=== PATIENT | female | born 1975 | race Caucasian/White ===

== ENCOUNTER 2017-07-05 12:08 | Inpatient (IN) | payer MEDICAID, OTHER ==
[2017-07-05] MEDS: IBUPROFEN 200 MG TAB PO (16:08)
[2017-07-05 16:10] LABS: ABNORMAL IP MESSAGE 1; HEMATOCRIT 18.2 % (37.0-47.0); MEAN CORPUSCULAR HEMOGLOBIN 16.7 pg (29.0-33.0); MEAN CORPUSCULAR HGB CONC 27.5 g/dl (32.0-37.0); MEAN CORPUSCULAR VOLUME 60.9 fl (82.0-101.0); MEAN PLATELET VOLUME 9.8 fl (7.4-10.4); NUCLEATED RED BLOOD CELLS% 0.1 /100WBC (0.0-0.0); PLATELET COUNT 440 10^3/UL (140-415); RED BLOOD COUNT 2.99 10^6/ul (4.20-5.40); RED CELL DISTRIBUTION WIDTH 20.1 % (11.5-14.5)
[2017-07-05 16:16] LABS: ADD UMIC YES; UR ASCORBIC ACID NEGATIVE (NEGATIVE); UR BACTERIA FEW /HPF (NONE SEEN); UR BILIRUBIN (Dip) NEGATIVE (NEGATIVE); UR BLOOD (Dip) 1+ mg/dL (NEGATIVE); UR CLARITY CLEAR (CLEAR); UR COLOR YELLOW (YELLOW); UR GLUCOSE (Dip) NEGATIVE (NEGATIVE); UR KETONES (Dip) NEGATIVE (NEGATIVE); UR LEUKOCYTE ESTERASE (Dip) NEGATIVE Leu/ul (NEGATIVE); UR NITRITE (Dip) NEGATIVE (NEGATIVE); UR RBC 0 /HPF (0-5); UR SPECIFIC GRAVITY (Dip) 1.018 (1.003-1.030); UR TOTAL PROTEIN (Dip) NEGATIVE (NEGATIVE); UR UROBILINOGEN (Dip) NEGATIVE (NEGATIVE); UR WBC 1 /HPF (0-5)
[2017-07-05 16:22] LABS: POSITIVE DIFF @See below
[2017-07-05 16:23] LABS: ADD MAN DIFF? YES; PATH REVIEW? YES
[2017-07-05 17:01] LABS: ANISOCYTOSIS 3+ (0-0); BAND NEUTROPHILS #M 1.2 10^3/ul (0.0-0.6); BAND NEUTROPHILS % (M) 6 % (0-4); ERYTHROBLAST% (NRBC) (M) 1 % (0-0); GIANT THROMBO% (M) 2 % (0-0); HYPOCHROMASIA 3+ (0-0); LYMPHOCYTES #M 0.4 10^3/ul (0.8-2.9); LYMPHOCYTES % (M) 2 % (15-51); MICROCYTOSIS 3+ (0-0); PLATELET ESTIMATE INCREASED; POIKILOCYTOSIS 2+ (0-0); POLYCHROMASIA 2+ (0-0); SEG NEUT #M 19.6 10^3/ul (1.7-7.5); SEGMENTED NEUTROPHILS (M) % 92 % (39-77); SMUDGE%M 1 % (0-0)
[2017-07-05] MEDS: SOD CHLORIDE 0.9% 1,000 ML IV ×3 (17:07→23:43)
[2017-07-05] MEDS: morphine 4 MG/ML VIAL IV (17:09)
[2017-07-05 17:20] LABS: PARTIAL THROMBOPLASTIN TIME 31.9 Sec (25.0-35.0); PROTIME 14.4 Sec (11.9-14.9); PT RATIO 1.1
[2017-07-05 17:54] LABS: ALANINE AMINOTRANSFERASE 30 IU/L (13-69); ALBUMIN 4.1 g/dl (3.3-4.9); ALBUMIN/GLOBULIN RATIO 1.64; ALKALINE PHOSPHATASE 46 IU/L (42-121); ANION GAP 19 (8-16); ASPARTATE AMINO TRANSFERASE 29 IU/L (15-46); BILIRUBIN,INDIRECT 0.3 mg/dl (0-1.1); BILIRUBIN,TOTAL 0.3 mg/dl (0.2-1.3); BLOOD UREA NITROGEN 11 mg/dl (7-20); CARBON DIOXIDE 20 mmol/L (21-31); CHLORIDE 106 mmol/L (97-110); CREATININE 0.62 mg/dl (0.44-1.00); GLUCOSE 103 mg/dl (70-220); LIPASE 90 U/L (23-300); POTASSIUM 3.6 mmol/L (3.5-5.1); SODIUM 141 mmol/L (135-144); TOTAL PROTEIN 6.6 g/dl (6.1-8.1)
[2017-07-05] MEDS: PIPER-TAZO 3.375 GM IV (PMX) 50 ML IV (18:24)
[2017-07-05 19:05] LABS: LACTIC ACID 1.4 mmol/L (0.5-2.0)
[2017-07-05] MEDS: IOHEXOL 300MG/ML 150 ML BTL (19:47)
[2017-07-05] MEDS: SOD CHLORIDE 0.9% 100 ML (19:47)
[2017-07-05 21:01] LABS: IMMEDIATE SPIN CROSSMATCH 1 4
[2017-07-05] MEDS: HYDROmorphONE 1 MG/ML SYG IV ×2 (21:21→23:09)
[2017-07-05 21:35] LABS: LACTIC ACID 1.1 mmol/L (0.5-2.0)
[2017-07-05] MEDS ORDERED: BISACODYL (EC) 5 MG TAB PO (22:00)
[2017-07-05] MEDS ORDERED: morphine 2 MG INJ IV (22:00)
[2017-07-05] MEDS ORDERED: VANCOMYCIN IV PER PHARMACY XX (22:00)
[2017-07-05] MEDS ORDERED: NACL 0.9% 3 ML SYG IV (22:00)
[2017-07-05] MEDS ORDERED: DOCUSATE SODIUM 100 MG CAP PO (22:00)
[2017-07-05 22:10] LABS: IRON < 10 ug/dl (35-150)
[2017-07-05 22:16] LABS: TOTAL IRON BINDING CAPACITY 385 ug/dl (241-421)
[2017-07-05 23:00] LABS: FERRITIN 7.4 ng/ml (6.2-137.0)
[2017-07-05] MEDS: ONDANSETRON 4 MG INJ IV (23:09)
[2017-07-06] MEDS: SOD CHLORIDE 0.9% 500 ML IV (00:02)
[2017-07-06] MEDS ORDERED: FUROSEMIDE 20 MG INJ IV (01:00)
[2017-07-06] MEDS: VANCOMYCIN 1 GM in 250 ML IVPB (01:25)
[2017-07-06] MEDS: ACETAMINOPHEN 325 MG TAB PO (01:32)
[2017-07-06] MEDS: PIPER-TAZO 3.375 GM IV (PMX) 50 ML IVPB ×4 (05:26→17:31)
[2017-07-06] MEDS: SOD CHLORIDE 0.9% 1,000 ML IV ×3 (05:35→21:44)
[2017-07-06 05:51] LABS: ADD MAN DIFF? NO
[2017-07-06 06:03] LABS: WHITE BLOOD COUNT 18.1 10^3/ul (4.8-10.8)
[2017-07-06 06:03] LABS: ABNORMAL IP MESSAGE 1; BASOPHIL # 0.1 10^3/ul (0.0-0.1); BASOPHILS % 0.6 % (0.0-2.0); EOSINOPHILS % 0.1 % (0.0-7.0); HEMATOCRIT 23.4 % (37.0-47.0); HEMOGLOBIN 7.2 g/dl (12.0-16.0); LYMPHOCYTES # 1.3 10^3/ul (0.8-2.9); LYMPHOCYTES % 7.2 % (15.0-51.0); MEAN CORPUSCULAR HEMOGLOBIN 21.2 pg (29.0-33.0); MEAN CORPUSCULAR HGB CONC 30.8 g/dl (32.0-37.0); MEAN CORPUSCULAR VOLUME 68.8 fl (82.0-101.0); MEAN PLATELET VOLUME 10.1 fl (7.4-10.4); MONOCYTE # 0.5 10^3/ul (0.3-0.9); MONOCYTES % 2.8 % (0.0-11.0); NEUTROPHIL # 16.1 10^3/ul (1.6-7.5); NEUTROPHILS % 88.7 % (39.0-77.0); NUCLEATED RED BLOOD CELLS # 0.1 10^3/ul (0.0-0.0); NUCLEATED RED BLOOD CELLS% 0.3 /100WBC (0.0-0.0); PLATELET COUNT 332 10^3/UL (140-415)
[2017-07-06 06:07] LABS: LACTIC ACID 1.5 mmol/L (0.5-2.0)
[2017-07-06 06:58] LABS: POSITIVE DIFF @See below
[2017-07-06 07:26] LABS: ALANINE AMINOTRANSFERASE 67 IU/L (13-69); ALBUMIN 3.2 g/dl (3.3-4.9); ALBUMIN/GLOBULIN RATIO 1.23; ALKALINE PHOSPHATASE 54 IU/L (42-121); ANION GAP 12 (8-16); ASPARTATE AMINO TRANSFERASE 98 IU/L (15-46); BILIRUBIN,INDIRECT 0.4 mg/dl (0-1.1); BILIRUBIN,TOTAL 0.4 mg/dl (0.2-1.3); BLOOD UREA NITROGEN 7 mg/dl (7-20); CALCIUM 7.9 mg/dl (8.4-10.2); CARBON DIOXIDE 19 mmol/L (21-31); CHLORIDE 112 mmol/L (97-110); CHOL/HDL RATIO 2.3 RATIO; CHOLESTEROL 90 mg/dl (100-200); CREATININE 0.65 mg/dl (0.44-1.00); GLUCOSE 140 mg/dl (70-220); HDL CHOLESTEROL 39 mg/dl (34-88); LDL CHOLESTEROL,CALCULATED 39 mg/dl; MAGNESIUM 1.9 mg/dl (1.7-2.5); POTASSIUM 3.4 mmol/L (3.5-5.1); SODIUM 140 mmol/L (135-144); TOTAL PROTEIN 5.8 g/dl (6.1-8.1); TRIGLYCERIDES 60 mg/dl (0-149)
[2017-07-06 08:35] LABS: THYROID STIMULATING HORMONE 0.876 MIU/L (0.465-4.680)
[2017-07-06 09:04] LABS: LACTIC ACID 0.9 mmol/L (0.5-2.0)
[2017-07-06] MEDS: POTASSIUM CHLORIDE (SR) 20 MEQ TAB PO ×2 (09:45→18:58)
[2017-07-06] MEDS: AZITHROMYCIN 250 MG TAB PO ×2 (10:00→20:40)
[2017-07-06 10:47] LABS: HEMOGLOBIN A1C 5.7 % (0-5.9)
[2017-07-06 12:39] LABS: HEPATITIS B SURFACE ANTIGEN NEGATIVE (NEGATIVE)
[2017-07-06 12:56] LABS: HEPATITIS C VIRAL ANTIBODY NEGATIVE (NEGATIVE)
[2017-07-06] MEDS: VANCOMYCIN 750 MG in DEXTROSE 5% 150 ML IVPB (15:30)
[2017-07-06] MEDS: BARIUM SULF 2% 450 ML BTL (BERRY SMOOTHIE) PO (15:30)
[2017-07-06 17:00] LABS: ADD MAN DIFF? NO
[2017-07-06] MEDS: SOD FERRIC GLUC COMPLX 125 MG in SOD CHLORIDE 0.9% 100 ML IVPB (17:00)
[2017-07-06 17:02] LABS: WHITE BLOOD COUNT 16.2 10^3/ul (4.8-10.8)
[2017-07-06 17:02] LABS: ABNORMAL IP MESSAGE 1; BASOPHIL # 0.1 10^3/ul (0.0-0.1); BASOPHILS % 0.7 % (0.0-2.0); EOSINOPHILS # 0.1 10^3/ul (0.0-0.5); EOSINOPHILS % 0.3 % (0.0-7.0); HEMOGLOBIN 10.9 g/dl (12.0-16.0); LYMPHOCYTES # 1.3 10^3/ul (0.8-2.9); LYMPHOCYTES % 8.1 % (15.0-51.0); MEAN CORPUSCULAR HEMOGLOBIN 22.9 pg (29.0-33.0); MEAN CORPUSCULAR HGB CONC 30.6 g/dl (32.0-37.0); MEAN CORPUSCULAR VOLUME 74.6 fl (82.0-101.0); MEAN PLATELET VOLUME 10.5 fl (7.4-10.4); MONOCYTE # 0.5 10^3/ul (0.3-0.9); MONOCYTES % 3.2 % (0.0-11.0); NEUTROPHIL # 14.1 10^3/ul (1.6-7.5); NEUTROPHILS % 87.2 % (39.0-77.0); NUCLEATED RED BLOOD CELLS # 0.1 10^3/ul (0.0-0.0); NUCLEATED RED BLOOD CELLS% 0.5 /100WBC (0.0-0.0); PLATELET COUNT 354 10^3/UL (140-415)
[2017-07-06 17:05] LABS: HEMATOCRIT 35.6 % (37.0-47.0); POSITIVE DIFF @See below; RED BLOOD COUNT 4.77 10^6/ul (4.20-5.40)
[2017-07-06] MEDS ORDERED: BARIUM SULF 2% 450 ML BTL (BERRY SMOOTHIE) PO (18:00)
[2017-07-06] MEDS: IOHEXOL 300MG/ML 150 ML BTL (18:48)
[2017-07-06] MEDS: SOD CHLORIDE 0.9% 100 ML (18:48)
[2017-07-06] MEDS: MEDROXYPROGESTERONE 10 MG TAB PO (18:58)
[2017-07-06 19:54] LABS: RAPID PLASMA REAGIN NONREACTIVE (NR)
[2017-07-07 00:45] LABS: ADD MAN DIFF? NO
[2017-07-07 00:49] LABS: WHITE BLOOD COUNT 15.4 10^3/ul (4.8-10.8)
[2017-07-07 00:49] LABS: ABNORMAL IP MESSAGE 1; BASOPHIL # 0.1 10^3/ul (0.0-0.1); BASOPHILS % 0.7 % (0.0-2.0); EOSINOPHILS # 0.1 10^3/ul (0.0-0.5); EOSINOPHILS % 0.5 % (0.0-7.0); HEMATOCRIT 33.1 % (37.0-47.0); HEMOGLOBIN 10.3 g/dl (12.0-16.0); LYMPHOCYTES # 1.5 10^3/ul (0.8-2.9); LYMPHOCYTES % 9.9 % (15.0-51.0); MEAN CORPUSCULAR HEMOGLOBIN 22.6 pg (29.0-33.0); MEAN CORPUSCULAR HGB CONC 31.1 g/dl (32.0-37.0); MEAN CORPUSCULAR VOLUME 72.6 fl (82.0-101.0); MEAN PLATELET VOLUME 10.2 fl (7.4-10.4); MONOCYTE # 0.7 10^3/ul (0.3-0.9); MONOCYTES % 4.2 % (0.0-11.0); NEUTROPHIL # 12.9 10^3/ul (1.6-7.5); NEUTROPHILS % 84.3 % (39.0-77.0); NUCLEATED RED BLOOD CELLS # 0.1 10^3/ul (0.0-0.0); NUCLEATED RED BLOOD CELLS% 0.7 /100WBC (0.0-0.0); PLATELET COUNT 339 10^3/UL (140-415); RED BLOOD COUNT 4.56 10^6/ul (4.20-5.40)
[2017-07-07] MEDS: PIPER-TAZO 3.375 GM IV (PMX) 50 ML IVPB ×4 (00:49→18:12)
[2017-07-07 01:01] LABS: POSITIVE DIFF @See below
[2017-07-07] MEDS: VANCOMYCIN 750 MG in DEXTROSE 5% 150 ML IVPB ×2 (02:22→15:25)
[2017-07-07] MEDS: MEDROXYPROGESTERONE 10 MG TAB PO (08:29)
[2017-07-07] MEDS: SOD FERRIC GLUC COMPLX 125 MG in SOD CHLORIDE 0.9% 100 ML IVPB (11:31)
[2017-07-07] MEDS: SOD CHLORIDE 0.9% 1,000 ML IV ×2 (11:32→22:07)
[2017-07-07] MEDS: POTASSIUM CHLORIDE 50 ML IVPB ×2 (18:12→18:13)
[2017-07-07] MEDS ORDERED: POTASSIUM CHLORIDE (SR) 20 MEQ TAB PO (23:44)
[2017-07-07] MEDS: POTASSIUM CHLORIDE (SR) 20 MEQ TAB PO (23:56)
[2017-07-08] MEDS: PIPER-TAZO 3.375 GM IV (PMX) 50 ML IVPB ×4 (00:18→18:30)
[2017-07-08] MEDS: VANCOMYCIN 750 MG in DEXTROSE 5% 150 ML IVPB ×3 (03:00→20:36)
[2017-07-08 03:34] LABS: VANCOMYCIN,TROUGH 5.2 ug/ml (10.0-20.0)
[2017-07-08 08:40] LABS: LIPASE 140 U/L (23-300)
[2017-07-08 08:40] LABS: AMYLASE 39 U/L (11-123)
[2017-07-08 08:56] LABS: ALANINE AMINOTRANSFERASE 60 IU/L (13-69); ALBUMIN 3.4 g/dl (3.3-4.9); ALKALINE PHOSPHATASE 79 IU/L (42-121); ANION GAP 18 (8-16); ASPARTATE AMINO TRANSFERASE 44 IU/L (15-46); BILIRUBIN,INDIRECT 0.2 mg/dl (0-1.1); BILIRUBIN,TOTAL 0.2 mg/dl (0.2-1.3); BLOOD UREA NITROGEN 6 mg/dl (7-20); CALCIUM 8.7 mg/dl (8.4-10.2); CARBON DIOXIDE 20 mmol/L (21-31); CHLORIDE 111 mmol/L (97-110); CREATININE 0.57 mg/dl (0.44-1.00); GLUCOSE 82 mg/dl (70-220); POTASSIUM 3.7 mmol/L (3.5-5.1); SODIUM 145 mmol/L (135-144); TOTAL PROTEIN 6.8 g/dl (6.1-8.1)
[2017-07-08] MEDS: MEDROXYPROGESTERONE 10 MG TAB PO (09:00)
[2017-07-08] MEDS ORDERED: VANCOMYCIN 1 GM in SODIUM CHLORIDE 0.45 % 250 ML IVPB (09:00)
[2017-07-08] MEDS: SOD FERRIC GLUC COMPLX 125 MG in SOD CHLORIDE 0.9% 100 ML IVPB (11:00)
[2017-07-08] MEDS: SOD CHLORIDE 0.9% 1,000 ML IV (12:45)
[2017-07-08] MEDS ORDERED: LIDOCAINE 2% (SDV) 5 ML INJ (14:56)
[2017-07-08] MEDS ORDERED: GLYCOPYRROLATE 0.4 MG INJ (14:56)
[2017-07-08] MEDS ORDERED: MIDAZOLAM 1 MG/ML 2 ML INJ (14:56)
[2017-07-08] MEDS ORDERED: PROPOFOL 20 ML (14:56)
[2017-07-08] MEDS ORDERED: FENTAnyl 50 MCG/ML VIAL (14:57)
[2017-07-08] MEDS ORDERED: FAMOTIDINE 20 MG INJ (15:01)
[2017-07-08] MEDS ORDERED: ONDANSETRON 4 MG INJ (15:01)
[2017-07-08] MEDS ORDERED: DEXAMETHASONE 4 MG/ML 1 ML INJ (15:01)
[2017-07-08] MEDS ORDERED: METOCLOPRAMIDE 10 MG INJ IV (15:30)
[2017-07-08] MEDS ORDERED: FENTAnyl 50 MCG/ML VIAL IV ×3 (15:30)
[2017-07-08] MEDS ORDERED: LABETALOL HCL 20MG INJ IV (15:30)
[2017-07-08] MEDS ORDERED: hydrALAzine 20 MG INJ IV (15:30)
[2017-07-08] MEDS ORDERED: OXYCODONE/ACETAMINOPHEN (5/325) TAB PO ×2 (15:30)
[2017-07-08] MEDS: ONDANSETRON 4 MG INJ IV (16:18)
[2017-07-08] MEDS: ACETAMINOPHEN 325 MG TAB PO (18:30)
[2017-07-09] MEDS: PIPER-TAZO 3.375 GM IV (PMX) 50 ML IVPB ×3 (00:32→12:14)
[2017-07-09] MEDS: SOD CHLORIDE 0.9% 1,000 ML IV ×2 (00:33→12:14)
[2017-07-09] MEDS: VANCOMYCIN 750 MG in DEXTROSE 5% 150 ML IVPB ×2 (04:00→15:18)
[2017-07-09] MEDS: ACETAMINOPHEN 325 MG TAB PO (08:53)
[2017-07-09] MEDS: MEDROXYPROGESTERONE 10 MG TAB PO (08:53)
[2017-07-09] MEDS ORDERED: HYDROmorphONE 4 MG TAB PO (10:48)
[2017-07-09] MEDS: BENZONATATE 100 MG CAP PO (12:16)
[2017-07-09 12:47] LABS: VANCOMYCIN,TROUGH 12.8 ug/ml (10.0-20.0)
== END 2017-07-09 19:13 | disposition home or self-care (01) | DRG 744 ==
LOC: MS4 07-06 00:44 → FTE 12:08 → PP2 20:56
PROC: 0UDB8ZZ Extraction of Endometrium, Via Natural or Artificial Opening Endoscopic (ICD-10-PCS; principal; 2017-07-08 13:30)
PROC: 30233N1 Transfusion of Nonautologous Red Blood Cells into Peripheral Vein, Percutaneous Approach (ICD-10-PCS; 2017-07-08 15:19)
DX: D25.9 Leiomyoma of uterus, unspecified (principal); N39.0 Urinary tract infection, site not specified; E88.09 Other disorders of plasma-protein metabolism, not elsewhere classified; E83.51 Hypocalcemia; N93.8 Other specified abnormal uterine and vaginal bleeding; E87.6 Hypokalemia; D72.829 Elevated white blood cell count, unspecified; D50.0 Iron deficiency anemia secondary to blood loss (chronic)
CPT/HCPCS: 36430; 71010; 74177; 74178; 76856; 80053; 80061; 80202; 81001; 82150; 82728; 83036; 83540; 83605; 83690; 83735; 84443; 84702; 85025; 85610; 85730; 86592; 86644; 86803; 86850; 86900; 86901; 86920; 87040; 87086; 87210; 87340; 87400; 87591; 88305

== ENCOUNTER 2017-07-26 02:14 | Emergency (ER) | payer MEDICAID ==
[2017-07-26] MEDS: morphine 2 MG INJ IV (03:49)
[2017-07-26] MEDS: ONDANSETRON 4 MG INJ IV (03:49)
[2017-07-26 04:15] LABS: ABNORMAL IP MESSAGE 1; HEMOGLOBIN 14.3 g/dl (12.0-16.0); MEAN CORPUSCULAR HEMOGLOBIN 25.2 pg (29.0-33.0); MEAN CORPUSCULAR HGB CONC 31.4 g/dl (32.0-37.0); MEAN CORPUSCULAR VOLUME 80.4 fl (82.0-101.0); MEAN PLATELET VOLUME 10.7 fl (7.4-10.4); PLATELET COUNT 438 10^3/UL (140-415)
[2017-07-26 04:15] LABS: WHITE BLOOD COUNT 15.7 10^3/ul (4.8-10.8)
[2017-07-26 04:21] LABS: HEMATOCRIT 45.6 % (37.0-47.0); POSITIVE DIFF @See below; RED BLOOD COUNT 5.67 10^6/ul (4.20-5.40)
[2017-07-26 04:22] LABS: ADD MAN DIFF? YES
[2017-07-26 04:35] LABS: ALANINE AMINOTRANSFERASE 67 IU/L (13-69); ALBUMIN/GLOBULIN RATIO 1.31; ALKALINE PHOSPHATASE 120 IU/L (42-121); ANION GAP 18 (8-16); ASPARTATE AMINO TRANSFERASE 58 IU/L (15-46); BILIRUBIN,INDIRECT 0.2 mg/dl (0-1.1); BILIRUBIN,TOTAL 0.2 mg/dl (0.2-1.3); BLOOD UREA NITROGEN 10 mg/dl (7-20); CALCIUM 9.5 mg/dl (8.4-10.2); CARBON DIOXIDE 28 mmol/L (21-31); CHLORIDE 97 mmol/L (97-110); CREATININE 0.61 mg/dl (0.44-1.00); GLUCOSE 132 mg/dl (70-220); LIPASE 82 U/L (23-300); POTASSIUM 3.8 mmol/L (3.5-5.1); SODIUM 139 mmol/L (135-144); TOTAL PROTEIN 8.8 g/dl (6.1-8.1)
[2017-07-26 05:13] LABS: ANISOCYTOSIS 2+ (0-0); BAND NEUTROPHILS #M 0.3 10^3/ul (0.0-0.6); BAND NEUTROPHILS % (M) 2 % (0-4); EOSINOPHILS % (M) 1 % (0-7); HYPOCHROMASIA 1+ (0-0); LYMPHOCYTES #M 2.3 10^3/ul (0.8-2.9); LYMPHOCYTES % (M) 15 % (15-51); MICROCYTOSIS 2+ (0-0); MONOCYTE #M 0.4 10^3/ul (0.3-0.9); MONOCYTES % (M) 3 % (0-11); PLATELET ESTIMATE INCREASED; POIKILOCYTOSIS 1+ (0-0); POLYCHROMASIA 3+ (0-0); SEG NEUT #M 12.5 10^3/ul (1.7-7.5); SEGMENTED NEUTROPHILS (M) % 79 % (39-77)
[2017-07-26] MEDS: SOD CHLORIDE 0.9% 100 ML (05:26)
[2017-07-26] MEDS: IOHEXOL 300MG/ML 150 ML BTL (05:26)
[2017-07-26 08:54] LABS: ADD UMIC NO; UR ASCORBIC ACID NEGATIVE (NEGATIVE); UR BILIRUBIN (Dip) NEGATIVE (NEGATIVE); UR BLOOD (Dip) NEGATIVE (NEGATIVE); UR CLARITY CLEAR (CLEAR); UR COLOR YELLOW (YELLOW); UR GLUCOSE (Dip) NEGATIVE (NEGATIVE); UR KETONES (Dip) NEGATIVE (NEGATIVE); UR LEUKOCYTE ESTERASE (Dip) NEGATIVE Leu/ul (NEGATIVE); UR NITRITE (Dip) NEGATIVE (NEGATIVE); UR SPECIFIC GRAVITY (Dip) 1.012 (1.003-1.030); UR TOTAL PROTEIN (Dip) NEGATIVE (NEGATIVE); UR UROBILINOGEN (Dip) NEGATIVE (NEGATIVE)
== END 2017-07-26 08:25 | disposition home or self-care (01) ==
LOC: E/R 02:14
DX: K59.00 Constipation, unspecified (principal)
CPT/HCPCS: 36415; 74177; 80053; 81003; 83690; 84703; 85025; 96374; 96375; 99285-25

== ENCOUNTER 2017-08-02 11:39 | Emergency (ER) | payer MEDICAID ==
[2017-08-02] MEDS: KETOROLAC 30 MG INJ IM (13:12)
[2017-08-02 13:21] LABS: ADD MAN DIFF? NO
[2017-08-02 13:24] LABS: ABNORMAL IP MESSAGE 1; BASOPHIL # 0.1 10^3/ul (0.0-0.1); BASOPHILS % 0.9 % (0.0-2.0); EOSINOPHILS # 0.3 10^3/ul (0.0-0.5); EOSINOPHILS % 3.4 % (0.0-7.0); HEMATOCRIT 41.4 % (37.0-47.0); HEMOGLOBIN 13.1 g/dl (12.0-16.0); LYMPHOCYTES # 1.5 10^3/ul (0.8-2.9); LYMPHOCYTES % 14.9 % (15.0-51.0); MEAN CORPUSCULAR HEMOGLOBIN 25.5 pg (29.0-33.0); MEAN CORPUSCULAR HGB CONC 31.6 g/dl (32.0-37.0); MEAN CORPUSCULAR VOLUME 80.5 fl (82.0-101.0); MEAN PLATELET VOLUME 9.9 fl (7.4-10.4); MONOCYTE # 0.6 10^3/ul (0.3-0.9); MONOCYTES % 5.5 % (0.0-11.0); NEUTROPHIL # 7.5 10^3/ul (1.6-7.5); PLATELET COUNT 304 10^3/UL (140-415); RED BLOOD COUNT 5.14 10^6/ul (4.20-5.40)
[2017-08-02 13:26] LABS: ADD UMIC YES; UR ASCORBIC ACID NEGATIVE (NEGATIVE); UR BILIRUBIN (Dip) NEGATIVE (NEGATIVE); UR BLOOD (Dip) 3+ mg/dL (NEGATIVE); UR BUDDING YEAST FEW /HPF (NONE SEEN); UR CLARITY SLIGHTLY CLOUDY (CLEAR); UR COLOR YELLOW (YELLOW); UR GLUCOSE (Dip) NEGATIVE (NEGATIVE); UR KETONES (Dip) NEGATIVE (NEGATIVE); UR LEUKOCYTE ESTERASE (Dip) TRACE Leu/ul (NEGATIVE); UR NITRITE (Dip) NEGATIVE (NEGATIVE); UR RBC > 182 /HPF (0-5); UR SPECIFIC GRAVITY (Dip) 1.012 (1.003-1.030); UR TOTAL PROTEIN (Dip) NEGATIVE (NEGATIVE); UR UROBILINOGEN (Dip) NEGATIVE (NEGATIVE); UR WBC 39 /HPF (0-5)
[2017-08-02 13:45] LABS: ALANINE AMINOTRANSFERASE 51 IU/L (13-69); ALBUMIN 4.4 g/dl (3.3-4.9); ALBUMIN/GLOBULIN RATIO 1.37; ALKALINE PHOSPHATASE 93 IU/L (42-121); ANION GAP 16 (8-16); ASPARTATE AMINO TRANSFERASE 37 IU/L (15-46); BILIRUBIN,INDIRECT 0.2 mg/dl (0-1.1); BILIRUBIN,TOTAL 0.2 mg/dl (0.2-1.3); BLOOD UREA NITROGEN 13 mg/dl (7-20); CALCIUM 9.4 mg/dl (8.4-10.2); CARBON DIOXIDE 26 mmol/L (21-31); CHLORIDE 103 mmol/L (97-110); CREATININE 0.56 mg/dl (0.44-1.00); GLUCOSE 86 mg/dl (70-220); POTASSIUM 3.7 mmol/L (3.5-5.1); SODIUM 141 mmol/L (135-144); TOTAL PROTEIN 7.6 g/dl (6.1-8.1)
[2017-08-02] MEDS: CEFTRIAXONE 1 GM INJ IM (14:43)
== END 2017-08-02 15:15 | disposition home or self-care (01) ==
LOC: FTE 11:39
DX: N30.01 Acute cystitis with hematuria (principal)
CPT/HCPCS: 36415; 76830; 76856; 80053; 81001; 84703; 85025; 87086; 96372; 99285-25

== ENCOUNTER 2018-03-28 16:38 | Emergency (ER) | payer MEDICAID ==
[2018-03-28 17:33] LABS: ADD MAN DIFF? NO
[2018-03-28 17:34] LABS: BASOPHIL # 0.1 10^3/ul (0.0-0.1); BASOPHILS % 1.2 % (0.0-2.0); EOSINOPHILS # 0.4 10^3/ul (0.0-0.5); EOSINOPHILS % 6.5 % (0.0-7.0); HEMATOCRIT 35.3 % (37.0-47.0); HEMOGLOBIN 11.6 g/dl (12.0-16.0); LYMPHOCYTES # 2.4 10^3/ul (0.8-2.9); LYMPHOCYTES % 36.4 % (15.0-51.0); MEAN CORPUSCULAR HEMOGLOBIN 28.9 pg (29.0-33.0); MEAN CORPUSCULAR HGB CONC 32.9 g/dl (32.0-37.0); MEAN CORPUSCULAR VOLUME 87.8 fl (82.0-101.0); MEAN PLATELET VOLUME 10.7 fl (7.4-10.4); MONOCYTE # 0.5 10^3/ul (0.3-0.9); MONOCYTES % 7.8 % (0.0-11.0); NEUTROPHIL # 3.2 10^3/ul (1.6-7.5); NEUTROPHILS % 47.9 % (39.0-77.0); PLATELET COUNT 278 10^3/UL (140-415); RED BLOOD COUNT 4.02 10^6/ul (4.20-5.40); RED CELL DISTRIBUTION WIDTH 14.3 % (11.5-14.5)
[2018-03-28 17:34] LABS: WHITE BLOOD COUNT 6.6 10^3/ul (4.8-10.8)
[2018-03-28] MEDS: LIDOCAINE/MYLANTA 40 ML BTL PO (17:41)
[2018-03-28] MEDS: KETOROLAC 15 MG INJ IV (17:41)
[2018-03-28 17:51] LABS: ALANINE AMINOTRANSFERASE 24 IU/L (13-69); ALBUMIN 4.1 g/dl (3.3-4.9); ALBUMIN/GLOBULIN RATIO 1.28; ALKALINE PHOSPHATASE 55 IU/L (42-121); ANION GAP 12 (8-16); ASPARTATE AMINO TRANSFERASE 25 IU/L (15-46); BILIRUBIN,INDIRECT 0.2 mg/dl (0-1.1); BILIRUBIN,TOTAL 0.2 mg/dl (0.2-1.3); BLOOD UREA NITROGEN 16 mg/dl (7-20); CALCIUM 8.8 mg/dl (8.4-10.2); CARBON DIOXIDE 26 mmol/L (21-31); CHLORIDE 105 mmol/L (97-110); CREATININE 0.66 mg/dl (0.44-1.00); GLUCOSE 105 mg/dl (70-220); LIPASE 222 U/L (23-300); POTASSIUM 4.1 mmol/L (3.5-5.1); SODIUM 139 mmol/L (135-144); TOTAL PROTEIN 7.3 g/dl (6.1-8.1)
[2018-03-28 18:03] LABS: TROPONIN-I < 0.012 ng/ml (0.000-0.120)
== END 2018-03-28 18:48 | disposition home or self-care (01) ==
LOC: E/R 16:38
DX: R07.89 Other chest pain (principal); R40.2142 Coma scale, eyes open, spontaneous, at arrival to emergency department; R40.2362 Coma scale, best motor response, obeys commands, at arrival to emergency department; R06.02 Shortness of breath
CPT/HCPCS: 36415; 71045; 80053; 81025; 83690; 84484; 85025; 93005; 96374; 99285-25

== ENCOUNTER 2018-08-24 17:57 | Emergency (ER) | payer SELFPAY, MEDICAID ==
[2018-08-24] MEDS: ONDANSETRON 4 MG INJ IV (22:16)
[2018-08-24] MEDS: SOD CHLORIDE 0.9% 1,000 ML IV (22:16)
== END 2018-08-24 23:11 | disposition home or self-care (01) ==
LOC: FTE 17:57
DX: H10.13 Acute atopic conjunctivitis, bilateral (principal); H00.025 Hordeolum internum left lower eyelid; H01.001 Unspecified blepharitis right upper eyelid
CPT/HCPCS: 99283

== ENCOUNTER 2018-10-05 18:26 | Emergency (ER) | payer SELFPAY | END 2018-10-05 23:18 | disposition left against medical advice (07) | LOC: E/R 18:26 | DX: Z53.21 Procedure and treatment not carried out due to patient leaving prior to being seen by health care provider (principal) ==

== ENCOUNTER 2018-10-16 18:55 | Emergency (ER) | payer SELFPAY ==
[2018-10-16 20:07] LABS: ADD MAN DIFF? NO
[2018-10-16 20:09] LABS: BASOPHIL # 0.1 10^3/ul (0.0-0.1); BASOPHILS % 1.5 % (0.0-2.0); EOSINOPHILS # 0.3 10^3/ul (0.0-0.5); HEMATOCRIT 33.2 % (37.0-47.0); HEMOGLOBIN 10.6 g/dl (12.0-16.0); LYMPHOCYTES # 1.9 10^3/ul (0.8-2.9); LYMPHOCYTES % 35.5 % (15.0-51.0); MEAN CORPUSCULAR HEMOGLOBIN 26.4 pg (29.0-33.0); MEAN CORPUSCULAR HGB CONC 31.9 g/dl (32.0-37.0); MEAN CORPUSCULAR VOLUME 82.8 fl (82.0-101.0); MEAN PLATELET VOLUME 10.8 fl (7.4-10.4); MONOCYTE # 0.5 10^3/ul (0.3-0.9); MONOCYTES % 8.4 % (0.0-11.0); NEUTROPHIL # 2.7 10^3/ul (1.6-7.5); NEUTROPHILS % 49.4 % (39.0-77.0); PLATELET COUNT 354 10^3/UL (140-415); RED BLOOD COUNT 4.01 10^6/ul (4.20-5.40); RED CELL DISTRIBUTION WIDTH 15.5 % (11.5-14.5)
[2018-10-16 20:09] LABS: WHITE BLOOD COUNT 5.4 10^3/ul (4.8-10.8)
[2018-10-16 20:26] LABS: ANION GAP 9 (5-13); BLOOD UREA NITROGEN 11 mg/dl (7-20); CALCIUM 9.4 mg/dl (8.4-10.2); CARBON DIOXIDE 24 mmol/L (21-31); CHLORIDE 107 mmol/L (97-110); CREATININE 0.51 mg/dl (0.44-1.00); Estimated GFR > 60 mL/min (>60); GLUCOSE 102 mg/dl (70-220); POTASSIUM 3.7 mmol/L (3.5-5.1); SODIUM 140 mmol/L (135-144)
[2018-10-16 20:38] LABS: TROPONIN-I < 0.012 ng/ml (0.000-0.120)
[2018-10-16] MEDS: KETOROLAC 15 MG INJ IM (21:01)
== END 2018-10-16 21:13 | disposition home or self-care (01) ==
LOC: E/R 21:13
DX: R07.2 Precordial pain (principal); D64.9 Anemia, unspecified; F41.9 Anxiety disorder, unspecified; R06.02 Shortness of breath; R20.2 Paresthesia of skin
CPT/HCPCS: 36415; 71045; 80048; 84484; 85025; 93005; 96372; 99285-25